=== PATIENT | male | born 1970 | race Caucasian/White ===

== ENCOUNTER 2020-12-04 18:10 | Emergency (ER) | payer OTHER ==
[~2020-12-04] VITALS: Ht 170.2 cm; Wt 97.5 kg
[2020-12-04 18:51] LABS: BASOPHILS ABSOLUTE AUTO 0.04 K/mm3 (0.00-0.23); BASOPHILS PERCENT AUTO 0 % (0-2); EOSINOPHILS ABSOLUTE AUTO 0.21 K/mm3 (0.00-0.68); EOSINOPHILS PERCENT AUTO 2 % (0-6); Hematocrit 47.6 % (37.0-53.0); Hemoglobin 16.5 g/dL (13.5-17.5); IMMATURE GRAN ABSOLUTE AUTO 0.03 K/mm3 (0.00-0.10); IMMATURE GRAN PERCENT AUTO 0 % (0-1); LYMPHOCYTES ABSOLUTE AUTO 2.85 K/mm3 (0.84-5.20); LYMPHOCYTES PERCENT AUTO 30 % (21-46); MONOCYTES ABSOLUTE AUTO 0.73 K/mm3 (0.16-1.47); MONOCYTES PERCENT AUTO 8 % (4-13); Mean Corpuscular HGB 30.8 pg (26.0-34.0); Mean Corpuscular HGB Conc 34.7 g/dL (31.5-36.5); Mean Corpuscular Volume 89 fL (80-100); Mean Platelet Volume 10.1 fL (9.1-12.4); NEUTROPHILS ABSOLUTE AUTO 5.68 K/mm3 (1.96-9.15); NEUTROPHILS PERCENT AUTO 60 % (41-73); Platelet Count 221 K/mm3 (150-400); RDW Coefficient Variation 12.1 % (11.7-14.2); RDW Standard Deviation 39.2 fL (35.1-46.3); Red Blood Cell Count 5.35 M/mm3 (4.30-5.90); White Blood Cell Count 9.54 K/mm3 (4.00-11.30)
[2020-12-04 19:06] LABS: Alanine Aminotransfer (ALT/SGP 96 U/L (12-78); Albumin, Blood 4.4 g/dL (3.4-5.0); Albumin/Globulin Ratio 1.3 (0.8-1.8); Alk Phos 83 U/L (50-136); Anion Gap 5 mmol/L (6-16); Aspartate Aminotrans (AST/SGOT 47 U/L (12-37); Bilirubin, Total 0.6 mg/dL (0.1-1.0); Blood Urea Nitrogen 9 mg/dL (8-24); CO2, Blood 27 mmol/L (21-32); Calcium, Blood 8.7 mg/dL (8.5-10.1); Chloride, Blood 104 mmol/L (98-108); Globulin, Blood 3.3 g/dL (2.2-4.0); Glomerular Filtration Rate >60 (60-); Glucose, Blood 105 mg/dL (70-99); Potassium, Blood 3.7 mmol/L (3.5-5.5); Sodium, Blood 136 mmol/L (136-145); Total Protein, Blood 7.7 g/dL (6.4-8.2); Troponin I <0.015 ng/mL (0.000-0.040)
[2020-12-04] MEDS ORDERED: CHLO25 PO ×2 (21:28→21:37)
[2021-02-26] MEDS ORDERED: LISI20 PO (11:42)
[2021-02-26] MEDS ORDERED: GABA300 PO (11:42)
[2021-02-26] MEDS ORDERED: Triamcinolone A15 G3 (11:42)
[2021-02-26] MEDS ORDERED: BUPR75 PO (11:42)
== END 2020-12-04 21:52 | disposition home or self-care (01) ==
LOC: ER 18:10
PROVIDERS: Emergency Medicine
DX: F10.239 Alcohol dependence with withdrawal, unspecified (principal); R25.1 Tremor, unspecified; F17.210 Nicotine dependence, cigarettes, uncomplicated
CPT/HCPCS: 36415; 71046; 80053; 83690; 83880; 84484; 85025; 93005; 93010; 96361; 96374; 99285-25; J2060; J7030

== ENCOUNTER 2021-03-04 09:03 | Day surgery (SDC) | payer OTHER ==
[~2021-03-04] VITALS: Ht 170.2 cm; Wt 97.1 kg
[~2021-03-04 09:03] MED LIST: BUPR75 PO; CHLO25 PO; GABA300 PO; LISI20 PO; Triamcinolone A15 G3
--- NOTE | 2021-03-04 09:35 | NUR ---
03/04/21 0935 NUPUR NATION ONE ATTEMPT IN RH BY KYLEE MISSED ONE SUCCESFUL BY KYLEE IN RAC PT TOW
== END 2021-03-04 11:22 | disposition home or self-care (01) ==
LOC: ORSCSDS 09:03
PROVIDERS: Surgery
PROC: 0DBN8ZX Excision of Sigmoid Colon, Via Natural or Artificial Opening Endoscopic, Diagnostic (ICD-10-PCS; principal; 2021-03-04 10:15)
PROC: 0DBP8ZX Excision of Rectum, Via Natural or Artificial Opening Endoscopic, Diagnostic (ICD-10-PCS; principal; 2021-03-04 10:15)
DX: Z12.11 Encounter for screening for malignant neoplasm of colon (principal); K63.5 Polyp of colon; K62.1 Rectal polyp; F41.9 Anxiety disorder, unspecified; I10 Essential (primary) hypertension; F17.210 Nicotine dependence, cigarettes, uncomplicated; Z79.899 Other long term (current) drug therapy
CPT/HCPCS: 88305; J2250; J2704; J7120

== ENCOUNTER 2024-11-08 05:38 | Day surgery (SDC) | payer OTHER ==
[~2024-11-08] VITALS: Ht 170.2 cm; Wt 105.8 kg
[2024-11-08] VITALS (10 sets, daily range): BP systolic 122–136; BP diastolic 69–91
[2024-11-08] MEDS ORDERED: CeFAZolin Sodium 2,000 MG in NS 100 ML IV SCH (06:10)
[2024-11-08] MEDS ORDERED: Lactated Ringer's 1,000 ML IV SCH (06:10)
[2024-11-08] MEDS ORDERED: OLMESARTAN MEDO20 MG PO (06:20)
[2024-11-08] MEDS ORDERED: CeFAZolin Sodium 2,000 MG VIAL ONE (06:54)
[2024-11-08] MEDS ORDERED: Bupivacaine 0.5% HCl 5 MG/ML 30MLVIAL ONE (07:06)
[2024-11-08] MEDS ORDERED: Dexamethasone Sod Phos 10 MG/ML 1ML VIAL ONE (07:10)
[2024-11-08] MEDS ORDERED: Ondansetron HCl 2 MG / ML 2ML Vial ONE (07:10)
[2024-11-08] MEDS ORDERED: Rocuronium Bromide 10 MG/ML 5ML Injection IV ONE ×2 (07:10→07:19)
[2024-11-08] MEDS ORDERED: HYDROmorphone HCl/Pf 1MG SYR ONE (07:11)
[2024-11-08] MEDS ORDERED: propofoL 20 ML IV ONE ×2 (07:11→08:52)
[2024-11-08] MEDS ORDERED: Sugammadex Sodium 200 MG/2ML SDV (100 MG/ML) ONE (07:12)
[2024-11-08] MEDS ORDERED: Ketorolac Tromethamine 30mg Vial ONE (07:13)
[2024-11-08] MEDS ORDERED: Dexmedetomidine HCL 200 MCG / 2 ML ONE (07:43)
[2024-11-08] MEDS ORDERED: Ondansetron HCl 2 MG / ML 2ML Vial IV PRN (08:10)
[2024-11-08] MEDS ORDERED: Acetaminophen 500 MG Tab PO PRN (08:10)
[2024-11-08] MEDS ORDERED: HYDROmorphone HCl/Pf 1MG SYR IV PRN ×2 (08:10)
[2024-11-08] MEDS ORDERED: Droperidol 5 mg/2 ml Vial IV PRN (08:10)
[2024-11-08] MEDS ORDERED: FentaNYL Citrate 50 MCG/ML 2 ML Injection IV PRN ×2 (08:15)
[2024-11-08] MEDS ORDERED: HYDROcodone 5-APAP 325 TAB PO PRN (10:35)
--- NOTE | 2024-11-08 11:17 | NUR ---
DISCHARGE NOTE PT A&OX4, BREATHING RA, VSS, TOLERATING PO INTAKE. AT BEDSIDE. ICE TO SURGICAL SITE. Patient up to Ambulate independently. Gait steady. Discharge instructions reviewed with patient. Patient verbalizes understanding. Copy given to patient to take home. Dressing to procedure site clean, dry, intact with no visible drainage, swelling, erythema or bruising noted. Discharged via wheelchair to private car for ride home.
== END 2024-11-08 11:15 | disposition home or self-care (01) ==
LOC: ORSCMMR 05:38 → ORD 07:30 → ORSCMMR 11:15
PROVIDERS: Surgery
PROC: 0YUA0JZ Supplement Bilateral Inguinal Region with Synthetic Substitute, Open Approach (ICD-10-PCS; principal; 2024-11-08 07:30)
DX: K40.20 Bilateral inguinal hernia, without obstruction or gangrene, not specified as recurrent (principal); F41.9 Anxiety disorder, unspecified; E78.5 Hyperlipidemia, unspecified; I10 Essential (primary) hypertension; G47.33 Obstructive sleep apnea (adult) (pediatric); Z79.899 Other long term (current) drug therapy; F17.210 Nicotine dependence, cigarettes, uncomplicated
CPT/HCPCS: A9270; C1781; J0690; J1100; J1171; J1885; J2405; J2704; J7120